=== PATIENT | female | born 1995 | race Caucasian/White ===

== ENCOUNTER 2016-10-19 16:16 | Emergency (ER) | payer MEDICAID, SELFPAY ==
[~2016-10-19] VITALS: Ht 154.9 cm; Wt 110.4 kg
[2016-10-19] MEDS ORDERED: BUSP5TA PO (16:28)
[2016-10-19] MEDS ORDERED: ZOLO100T PO (16:28)
[2016-10-19] MEDS ORDERED: MORPHINE 2 MG/ML 1ML SYRINGE IV ONE (18:30)
[2016-10-19] MEDS ORDERED: ONDANSETRON 4MG/2ML VIAL (J2405) IV ONE (18:30)
[2016-10-19] MEDS ORDERED: NS 1,000 ML IV ONE (18:30)
[2016-10-19] MEDS ORDERED: PANTOPRAZOLE 40MG INJ (PROTONIX) (C9113) IV ONE (18:30)
[2016-10-19] MEDS ORDERED: GASTROGRAFIN SOLUTION 30ML PO ONE (18:45)
[2016-10-19] MEDS ORDERED: GASTROGRAFIN SOLUTION 30ML (Q9963) As Ordered ONE (18:50)
[2016-10-19] MEDS ORDERED: GASTROGRAFIN SOLUTION 30ML (Q9963) PO ONE (19:15)
[2016-10-19 19:41] LABS: ADD MORPHOLOGY? NO; BASO % 0.7 % (0.0-1.0); EOS # 0.1 K/mm3 (0.0-0.50); EOS % 1.6 % (0.0-3.0); LARGE UNSTAINED CELL # 0.1 K/mm3 (0.0-0.4); LARGE UNSTAINED CELL % 1.9 % (0.0-4.0); MEAN CORPUSCULAR HEMOGLOBIN 29.9 pg (27.0-33.0); MEAN CORPUSCULAR HGB CONC 33.7 g/dl (32.0-36.5); MEAN CORPUSCULAR VOLUME 88.5 fl (80.0-96.0); MONO # 0.3 K/mm3 (0.0-0.8); NEUTROPHILS % 62.8 % (36.0-66.0); PLATELET COUNT, AUTOMATED 270 k/mm3 (150-450); WHITE BLOOD COUNT 6.4 K/mm3 (4.0-10.0)
[2016-10-19 19:44] LABS: INR 1.01
[2016-10-19 19:54] LABS: ALBUMIN 3.6 GM/DL (3.2-5.2); ALBUMIN/GLOBULIN RATIO 1.16 (1.00-1.93); ALKALINE PHOSPHATASE 118 U/L (45-117); ALT/SGPT 37 U/L (12-78); AMYLASE 48 U/L (25-115); ANION GAP 9 MEQ/L (8-16); AST/SGOT 16 U/L (15-37); BILIRUBIN,DIRECT < 0.1 MG/DL (0.0-0.2); BILIRUBIN,TOTAL 0.3 MG/DL (0.2-1.0); BLOOD UREA NITROGEN 9 MG/DL (7-18); CALCIUM LEVEL 8.7 MG/DL (8.5-10.1); CARBON DIOXIDE LEVEL 23 MEQ/L (21-32); CHLORIDE LEVEL 111 MEQ/L (98-107); CREATININE FOR GFR 0.59 MG/DL (0.55-1.02); GLOMERULAR FILTRATION RATE > 60.0 (>60); GLUCOSE, FASTING 85 MG/DL (70-105); POTASSIUM SERUM 4.1 MEQ/L (3.5-5.1); SODIUM LEVEL 143 MEQ/L (136-145); TOTAL PROTEIN 6.7 GM/DL (6.4-8.2)
[2016-10-19] MEDS ORDERED: ISOVUE-370 76% 100ML VIAL (Q9967) As Ordered ONE (20:22)
--- NOTE | 2016-10-19 20:59 | REP ---
Clinical: Right-sided abdominal pain and hematemesis. Technique: Axial contrast enhanced images from the lung bases to the pubic symphysis using oral and 100 ml Isovue 370 intravenous contrast material with coronal and sagittal re-formations. Findings: Lung bases are clear. Liver, spleen, pancreas, gallbladder, bilateral adrenal glands and kidneys are normal. The enteric system is without obstruction or acute inflammatory process and a normal terminal ileum is identified in the right lower quadrant. Few pericecal lymph nodes raise the possibility of mesenteric adenitis. The patient is status post appendectomy. The pelvis demonstrates normal bladder and age-appropriate uterus/adnexa. No ascites. No free air. No retroperitoneal adenopathy. Vasculature appears normal. Musculoskeletal structures are intact. Impression: 1. Mildly prominent lymph nodes in the right lower quadrant raise the possibility of mesenteric adenitis. 2. Otherwise normal contrast enhanced CT of the abdomen and pelvis. Signed by Homer Mayes MD 10/19/2016 08:50 P
[2016-10-19] MEDS ORDERED: MACR100C43 PO (21:42)
[2016-10-19] MEDS ORDERED: NITROFURANTOIN (MACROBID) 100 MG CAP PO ONE (21:45)
[2016-10-19 21:53] VITALS: BP 124/62
== END 2016-10-19 22:03 | disposition home or self-care (01) ==
LOC: M ED 16:16
DX: N39.0 Urinary tract infection, site not specified (principal); I88.0 Nonspecific mesenteric lymphadenitis; R10.31 Right lower quadrant pain; F41.9 Anxiety disorder, unspecified; F32.9 Major depressive disorder, single episode, unspecified; Z79.899 Other long term (current) drug therapy; Z91.040 Latex allergy status
CPT/HCPCS: 74177; 80048; 80076; 81001; 81025; 82150; 83605; 83690; 85025; 85610; 85730; 96374; 96375; 99283; C9113; J2405; Q9963; Q9967